=== PATIENT | male | born 1965 | race Hispanic/Latino ===

== ENCOUNTER 2018-03-27 08:24 | Day surgery (SDC) | payer MEDICARE ==
[2018-03-19 09:44] VITALS: BMI 28.0
--- NOTE | 2018-03-27 05:34 | HP ---
Copied To: Thong Dean MD Attending MD: Thong Dean MD REASON FOR ADMISSION: Left heart cath, possible angioplasty, abnormal stress test. BRIEF CLINICAL HISTORY: This is a 52-year-old male with past medical history significant for coronary artery disease, CABG, history of PTCA in the past, decreased LV function, ischemic cardiomyopathy, history of hypertension, diabetes, hyperlipidemia who had recent stress test with Dr. Romero was abnormal and the patient is scheduled for elective cardiac cath and possible angioplasty. PAST MEDICAL HISTORY: Significant for diabetes, hypertension, hyperlipidemia, coronary artery disease, status post CABG, status post PTCA, ischemic cardiomyopathy, hypertriglyceridemia, gout, extensive history of coronary artery disease, it started in 2001, 15-16 years ago at the age of 36, the patient had severe triple-vessel disease, underwent cardiac catheterization at [facility], subsequently underwent three-vessel bypass. Five months post bypass, the patient developed another episode of chest pain at work and repeat cath showed 3 out of the 2 bypasses are closed and the patient underwent a stenting, and since then the patient lost followup and being followed by [facility]. Then the patient had stent. Most recently, the patient had a stent in 01/2014 which shows inferior wall ischemia was essentially unchanged from 2013. RECENT CARDIAC WORKUP: As follows: The patient underwent echocardiography that showed ejection fraction 40%, mild diastolic dysfunction, mild mitral regurgitation, trace tricuspid regurgitation, bicuspid possible aortic valve, RV systolic pressure 20, echo dated 03/03/2018. The patient had a stress test dated 03/06/2018 that showed abnormal myocardial perfusion study, partially reversible at the edge of large defect involving inferolateral ischemia. Ejection fraction reported 40%. REVIEW OF SYSTEMS: As per HPI. SOCIAL HISTORY: Denies any smoking. Denies any history of alcohol abuse. FAMILY HISTORY: Significant for hypertension and diabetes. CURRENT MEDICATIONS: The patient is taking at home trazodone 100 mg daily, Glucophage 1 g twice a day, clonidine 0.1 mg three times a day, [place] fatty acid, , nitroglycerin stat, meclizine 25 p.o. every 6 hours, lisinopril 60 mg daily, insulin 35 units, gabapentin 300 p.o. t.i.d., TriCor 145, Lexapro 20, Plavix 75 mg daily, vitamin D, Coreg 25 p.o. b.i.d., atorvastatin 10 mg, allopurinol 100 mg daily. ALLERGIES: NO KNOWN DRUG ALLERGIES. PHYSICAL EXAMINATION VITAL SIGNS: Height of the patient 5 feet 9 inches, weight of the patient 190 pounds, body mass index 30 kg/sq m. Blood pressure 120/78, heart rate 78, temperature afebrile. HEENT: PERRLA. Extraocular muscles intact. NECK: Supple. No carotid bruits or thyromegaly. CHEST: Clear to auscultation. HEART: S1 and S2, regular. ABDOMEN: Soft. EXTREMITIES: Clubbing and cyanosis negative. IMPRESSION: A 52-year-old male with very extensive history of coronary artery disease started at the age of 36, history of hypertension, hyperlipidemia. The patient had severe triple-vessel disease and cardiac cath was done at [facility], and subsequently the patient was referred for three-vessel bypass. Five months after the bypass, the patient developed another episode of chest pain at work and repeat catheterization was done and found 3 out of the 2 bypasses closed and the patient underwent a stenting. Then the patient lost followup and being followed at [facility] where stents done. Last stent, the patient had in 09/2012. Recent stress test is abnormal, so the patient is scheduled for elective cardiac cath, possible angioplasty, history of diabetes, hypertension, hyperlipidemia. Family history is significant for diabetes. Since the patient has inferolateral ischemia and ischemic cardiomyopathy, we will do the cardiac catheterization. Further recommendation after cardiac catheterization. We will follow with you. Thank you, Dr. Cintron/Dr. Romero, for providing us the opportunity in taking care of the patient, Piotr Diggs. Thong Dean MD
[2018-03-27 09:04] LABS: BASO # 0.03 K/mm3 (0.0-2.0); BASO % 0.4 % (0.0-3.0); EOS # 0.1 (0.0-0.7); EOS % 1.3 % (1.5-5.0); GRAN # 3.48 (1.4-6.5); GRAN % 46.1 % (50.0-68.0); HEMOGLOBIN 12.4 g/dL (14.0-18.0); LYMPH # 3.3 (1.2-3.4); LYMPH % 43.4 % (22.0-35.0); MEAN CELL VOLUME 83.5 fl (80.0-105.0); MEAN CORPUSCULAR HGB CONC 33.5 g/dl (31.0-37.0); MEAN PLATELET VOLUME 9.6 fl (7.0-11.0); MONO # 0.7 (0.1-0.6); MONO % 8.8 % (1.0-6.0); RBC 4.43 10^6/uL (3.5-6.1); RED CELL DISTRIBUTION WIDTH 12.9 % (11.5-14.5); WHITE BLOOD COUNT 7.5 10^3/ul (4.5-11.0)
[2018-03-27 09:09] LABS: INR 0.96
[2018-03-27 09:12] LABS: PARTIAL THROMBOPLASTIN TIME 27.5 Seconds (25.1-36.5)
[2018-03-27 09:13] LABS: BLOOD UREA NITROGEN 13 mg/dL (7-21); CALCIUM 8.9 mg/dL (8.4-10.5); GFR AFRICAN-AMERICAN > 60; GFR NON-AFRICAN AMERICAN > 60; HDL CHOLESTEROL 33 mg/dL (29-60)
[2018-03-27 09:24] LABS: LDL CHOLESTEROL 62 mg/dL (0-129)
[2018-03-27] MEDS ORDERED: Iohexol 350mgl/ml 50 ML ONE (09:33)
[2018-03-27] MEDS ORDERED: Iodixanol 320 MG/ML 200 ML BOTTLE IV ONE (09:33)
[2018-03-27] MEDS ORDERED: Lidocaine PF 2% (5 ml) Inj (For Cardiac Arrhy) ONE (09:33)
[2018-03-27 09:39] VITALS: TEMP 98.1
[2018-03-27] MEDS ORDERED: Midazolam 2 MG/2 ML VIAL ONE (09:48)
[2018-03-27] MEDS ORDERED: Sodium Chloride 0.9% 1,000 ML IV SCH (11:30)
[2018-03-27] MEDS ORDERED: Insulin Reg-LOW-Coverage SC SCH (11:30)
[2018-03-27 11:31] VITALS: O2SAT 97
[2018-03-27] MEDS ORDERED: Insulin Regular 100 units/ml ONE (12:16)
--- NOTE | 2018-03-27 14:16 | CARD ---
APPROVED REPORT Date of service: 03/27/2018 EKG Measurement Heart [id number] <Conclusion> Normal sinus rhythm Abnormal QRS-T angle, consider primary T wave abnormality Abnormal ECG
--- NOTE | 2018-03-27 17:10 | CPOSTOP ---
Copied To: Thong Dean MD Attending MD: Thong Dean MD DATE: 03/27/2018 CARDIOVASCULAR LAB PROCEDURE NOTE DICTATING PHYSICIAN: Thong Dean MD LUMBER STRAIGHTENER: Shivani projection technician. TYPE OF ANESTHESIA: Moderate conscious sedation. Total 2 mg of Versed, 100 of fentanyl given. PRE-PROCEDURE DIAGNOSES: Unstable angina, abnormal stress test, history of coronary artery disease, coronary artery bypass graft. PROCEDURE PERFORMED: Left heart catheterization, left internal mammary artery injections, saphenous vein graft injection. FINDINGS: [place] triple-vessel disease, occluded graft. FINAL DIAGNOSIS: Triple-vessel disease. POST PROCEDURE CONDITION: Stable. VASCULAR ACCESS SITE: Right femoral groin. CLOSURE DEVICE: Mynx. TOTAL RADIATION DOSE: 10,564.9 milligray unit. TOTAL FLUORO TIME: 8.5 minutes. Thong Dean MD
[2018-03-27 17:28] VITALS: BP 141/81; PULSE 78; RESP 20
--- NOTE | 2018-03-27 18:14 | CARD ---
APPROVED REPORT Date of service: 03/27/2018 Procedure(s) performed: Left Heart Catheterization VALLE Angiogram SVG Angiogram HISTORY The patient is a 52 year-old male with a history of : diabetes mellitus with treatment , coronary artery disease, hypertension , previous CABG (The CABG date was 05/12/2002), dyslipidemia , Hx of CABG three vessel in 2001 , SVG to RCA, SVG to OM! and OM2, and post CABG multiple PTCA in [facility] ,Last PCI in 2012 and recent had an avnormal stress test with decreased LV Fx.. INDICATION The indication(s) include : positive stress test. CASE TECHNIQUE The patient was brought electively to the Cardiac Catheterization Laboratory in a fasting state and was prepped and draped in a sterile manner. The right femoral groin was infiltrated with 2% Lidocaine subcutaneous anesthesia. A 6 Fr x 11 cm Yesi sheath was inserted into the right femoral artery without difficulty. Coronary angiography was performed using coronary diagnostic catheters. The left coronary system was accessed and visualized with a Diagnostic , 5F JL 4 CATH DXT 100 CM catheter. The right coronary system was accessed and visualized with a Diagnostic ,5 Fr JR 4 catheter. The left ventricle was accessed and visualized with a 5F PIGTAIL 145 CATH DXT 110 CM catheter. The left internal mammary artery was accessed and visualized with a Diagnostic ,6 Fr GREER catheter. The saphenous vein graft was accessed and visualized with a Diagnostic ,6 Fr MPA 1 catheter. Left ventricular/Aortic Valve gradient assessed on pullback. Left ventriculogram was performed in [place] projection. Closure device was deployed with a 6 Fr / 7 Fr MynxGrip without any complications. The patient tolerated the procedure well and there were no complications associated with the procedure. Vessel Analysis The patient's coronary anatomy is right dominant. The left main coronary artery is a large size vessel with diffuse calcification noted throughout this vessel and without significant stenosis. The left main bifurcates to the left anterior descending and circumflex. The left anterior descending artery is a large size vessel with diffuse calcification noted throughout this vessel and with significant stenosis. There is a 80% stenosis in the distal segment. instent restenosis, Proximal LAD has 60%, and Mid LAD has 60-70% stenoses The first diagonal branch is a small size vessel with diffuse calcification noted throughout this vessel and without significant stenosis. The second diagonal branch is a small size vessel with diffuse calcification noted throughout this vessel and without significant stenosis. The third diagonal branch is a small size vessel with diffuse calcification noted throughout this vessel and without significant stenosis. The circumflex artery is a medium size vessel occluded at [place]. The right coronary artery is a medium size vessel occluded proximally. The left internal mammary artery to the is nice size artery not used, free to chest wall. The saphenous vein graft to the distal right coronary artery occluded . The saphenous vein graft to the first obtuse marginal branch segment occluded . LAD is giving Collaterals to Cx and RCA Left Ventricle The left ventricle is mildly enlarged in size in size with moderately decreased contractility. Ischemic cardiomyopathy. The left ventricular ejection fraction is estimated to be 35%. The left ventricular end diastolic pressure is 20 mmHg. There was no gradient across the aortic valve upon pullback. Conclusion Ruby three Vessel CAD, Occluded Grafts ( SVGs) VALLE not used Free to Chest wall Single vessel conduit, which is diseased LAD giving collaterals to RCA and Cx. Recommendations CTS Eval for Re-do CABG, using VALLE to LAD, SVG sequential to OM1 and OM2, and SVG to RPDA. Interim aggressive medical treatment. CC; Drs. Cintron/ Heather.
[2018-03-27] MEDS ORDERED: Insulin Detemir 100 units/ml Vial (Levemir) SC SCH (22:00)
== END 2018-03-27 17:25 | disposition home or self-care (01) ==
LOC: CATH 08:24
PROVIDERS: ATTEND Internal Medicine Cardiovascular Disease
DX: I25.110 Atherosclerotic heart disease of native coronary artery with unstable angina pectoris (principal); I10 Essential (primary) hypertension; E78.5 Hyperlipidemia, unspecified; E11.9 Type 2 diabetes mellitus without complications; I25.5 Ischemic cardiomyopathy; Z95.1 Presence of aortocoronary bypass graft
CPT/HCPCS: 36415; 80048; 80061; 82948; 85025; 85610; 85730; 86850; 86900; 93005; 93459; 99152; C1760; C1769; C1887; C2629; J1644; J2250; J3010; J7030; Q9966

== ENCOUNTER 2018-09-25 09:03 | Outpatient (CLI) | payer MEDICARE | END 2018-09-25 09:04 | disposition home or self-care (01) | LOC: RAD 09:03 | DX: I42.0 Dilated cardiomyopathy (principal) ==